=== PATIENT | female | born 2000 | race American Indian/Alaskan Native ===

== ENCOUNTER 2022-01-05 15:02 | Observation (INO) ==
[2022-01-05] MEDS ORDERED: LACTATED RINGERS 1,000 ML IV ONE (15:37)
[2022-01-05 15:41] LABS: Bacteria,Urine Occasional /HPF (Few); Mucus,Urine Many /LPF (Occasional); RBC,Urine 4 /HPF (0-4); Squamous Epithelial Cell,Urine Occasional /HPF (0-10)
[2022-01-05 15:42] LABS: Bilirubin,Urine Negative (Negative); Blood, Urine Negative (Negative); Glucose,Urine (UA) Negative (Negative); Ketones,Urine Trace mg/dL (Negative); Nitrite,Urine Positive (Negative); Protein,Urine >=300 mg/dL (Negative); Urine Appearance Clear (Clear); Urine Color Yellow (Yellow); Urine Specific Gravity >= 1.030 (1.001-1.035)
[2022-01-05 15:47] LABS: Protein/Creatinine Ratio,Urine 2.2 RATIO
[2022-01-05 16:00] LABS: Basophils % 0.2 % (0.0-0.8); Eosinophils # 0.1 10*3/uL (0.0-0.87); Eosinophils % 0.6 % (0.00-10.9); Hematocrit 35.1 VOL% (35.7-47.0); Hemoglobin 12.1 GM/DL (12.0-16.0); Immature Granulocytes % 0.2 %; Immature Granulocytes Absolute 0.02 #; Lymphocytes # 2.4 10*3/uL (1.4-4.0); Lymphocytes % 28.6 % (21.3-54.2); Mean Corpuscular HGB Conc 34.5 GM/DL (32-36); Mean Corpuscular Volume 83.2 FL (87-102); Mean Platelet Volume 9.5 FL (9.6-12.0); Monocytes # 0.5 10*3/uL (0.11-0.8); Monocytes % 5.7 % (1.7-12.7); Neutrophils % 64.7 % (38.7-73.9); Platelet Count 286 T/CUMM (130-400); Red Blood Count 4.22 MC/CUMM (3.8-5.5); Red Cell Distribution Width 11.7 % (9.3-17.3); White Blood Count 8.4 T/CUMM (4-12)
[2022-01-05] MEDS ORDERED: DEXTROSE 50% 25 GM/50 ML VIAL IV PRN (16:08)
[2022-01-05] MEDS ORDERED: GLUCAGON 1 MG VIAL IM PRN (16:08)
[2022-01-05 16:16] LABS: INR 0.9; PT Patient Result 10.2 SECS (10.1-12.1); Partial Thromboplastin Time 27.8 SECS (23.7-32.9)
[2022-01-05] MEDS: BETAMETH SODIUM PHOS/ACETATE 30 MG/5 ML VIAL IM SCH (16:20)
[2022-01-05 16:24] LABS: Alanine Aminotransferase 16 U/L (13-56); Albumin 1.7 G/DL (3.4-5.0); Alkaline Phosphatase 88 U/L (45-117); Aspartate Amino Transferase 18 U/L (0-37); Bilirubin,Direct < 0.100 MG/DL (0.0-0.20); Blood Urea Nitrogen 8 MG/DL (7-18); Calcium 8.2 MG/DL (8.5-10.1); Carbon Dioxide 20 MMOL/L (21-32); Chloride 110 MMOL/L (98-107); Glucose 85 MG/DL (74-106); Osmolality,Calculated 273.5 MOS/KG (273-304); Potassium 3.3 MMOL/L (3.5-5.1); Sodium 139 MMOL/L (136-145); Total Protein 6.1 G/DL (6.4-8.2); Uric Acid 4.3 MG/DL (2.6-6.0)
[2022-01-05] MEDS ORDERED: DEXTROSE 10% 250 ML BAG IV PRN (16:25)
[2022-01-05] MEDS ORDERED: LEVOFLOXACIN INJ 500 MG/100 ML PREMIX IV ONE (17:00)
[2022-01-05] MEDS: LACTATED RINGERS 1,000 ML IV SCH (17:02)
[2022-01-05] MEDS: INSULIN REGULAR 100 UNIT/ML SUBCUT SCH ×2 (17:27→21:24)
[2022-01-05] MEDS: POTASSIUM CHLORIDE 20 MEQ TABLET PO PRN ×3 (17:30→23:39)
[2022-01-05] MEDS: metFORMIN 500 MG TABLET PO SCH (17:31)
[2022-01-05 18:07] LABS: Barbiturates Screen,Urine Negative (Negative); Benzodiazepines Screen,Urine Negative (Negative); Cannabinoid Screen,Urine Negative (Negative); Opiate Screen,Urine Negative (Negative); Phencyclidine Screen,Urine Negative (Negative)
[2022-01-05] MEDS: INSULIN GLARGINE 100 UNIT/ML SUBCUT SCH (21:24)
[2022-01-06] MEDS ORDERED: OXYTOCIN/LR 30 UNIT/1,000 ML BAG IV ONE (00:14)
[2022-01-06] MEDS ORDERED: OXYTOCIN 10 UNIT/ML VIAL IM ONE (00:15)
[2022-01-06] MEDS: LACTATED RINGERS 1,000 ML IV SCH ×3 (01:22→18:29)
[2022-01-06] MEDS ORDERED: miSOPROStoL 200 MCG TABLET ONE (04:24)
[2022-01-06] MEDS: BETAMETH SODIUM PHOS/ACETATE 30 MG/5 ML VIAL IM SCH (04:27)
[2022-01-06] MEDS: INSULIN REGULAR 100 UNIT/ML SUBCUT SCH ×4 (07:48→22:59)
[2022-01-06] MEDS: metFORMIN 500 MG TABLET PO SCH ×2 (07:59→17:37)
[2022-01-06] MEDS: MULTIVITAMIN (PRENATAL) TABLET PO SCH (09:02)
[2022-01-06 15:32] LABS: Total Protein 24 Hr Ur Result 3915 MG/24HR (0-149.1); Total Volume,Urine 1500 ML (400-2000)
[2022-01-06 15:46] LABS: Creatinine Clearance Urine 260.21 ML/MIN (70-115)
[2022-01-06 20:35] VITALS: BP 137/81
[2022-01-06] MEDS: INSULIN GLARGINE 100 UNIT/ML SUBCUT SCH (22:59)
[2022-01-07] MEDS: INSULIN REGULAR 100 UNIT/ML SUBCUT SCH (07:40)
[2022-01-07] MEDS: metFORMIN 500 MG TABLET PO SCH (08:35)
[2022-01-07] MEDS: MULTIVITAMIN (PRENATAL) TABLET PO SCH (09:07)
== END 2022-01-07 10:42 | disposition home or self-care (01) ==
LOC: N.LDOUT 15:02 → N.LD 15:02
PROVIDERS: ADMIT Obstetrics & Gynecology; ATTEND Obstetrics & Gynecology

== ENCOUNTER 2022-01-12 13:10 | Inpatient (IN) ==
[2022-01-12 14:04] LABS: Basophils % 0.1 % (0.0-0.8); Eosinophils % 0.1 % (0.00-10.9); Hematocrit 34.8 VOL% (35.7-47.0); Hemoglobin 12.1 GM/DL (12.0-16.0); Immature Granulocytes % 0.4 %; Immature Granulocytes Absolute 0.03 #; Lymphocytes # 2.6 10*3/uL (1.4-4.0); Lymphocytes % 32.5 % (21.3-54.2); Mean Corpuscular HGB Conc 34.8 GM/DL (32-36); Mean Corpuscular Volume 82.3 FL (87-102); Mean Platelet Volume 9.8 FL (9.6-12.0); Monocytes # 0.4 10*3/uL (0.11-0.8); Monocytes % 4.9 % (1.7-12.7); Platelet Count 292 T/CUMM (130-400); Red Blood Count 4.23 MC/CUMM (3.8-5.5); Red Cell Distribution Width 11.6 % (9.3-17.3)
[2022-01-12 14:18] LABS: INR 0.9; PT Patient Result 9.9 SECS (10.1-12.1); Partial Thromboplastin Time 26.5 SECS (23.7-32.9)
[2022-01-12 14:20] LABS: Bacteria,Urine Moderate /HPF (Few); Mucus,Urine Many /LPF (Occasional); RBC,Urine 8 /HPF (0-4); Squamous Epithelial Cell,Urine Few /HPF (0-10); Urine Appearance Clear (Clear); Urine Color Yellow (Yellow); Urine Specific Gravity 1.033 (1.001-1.035)
[2022-01-12 14:21] LABS: Bilirubin,Urine Small mg/dL (Negative); Blood, Urine Trace mg/dL (Negative); Glucose,Urine (UA) 100 mg/dL (Negative); Ketones,Urine Trace mg/dL (Negative); Nitrite,Urine Negative (Negative); Protein,Urine >=300 mg/dL (Negative)
[2022-01-12 14:26] LABS: Alanine Aminotransferase 18 U/L (13-56); Albumin 1.7 G/DL (3.4-5.0); Alkaline Phosphatase 82 U/L (45-117); Aspartate Amino Transferase 15 U/L (0-37); Bilirubin,Total < 0.39 MG/DL (0.20-1.00); Blood Urea Nitrogen 11 MG/DL (7-18); Carbon Dioxide 21 MMOL/L (21-32); Chloride 109 MMOL/L (98-107); Glucose 124 MG/DL (74-106); Osmolality,Calculated 278.4 MOS/KG (273-304); Potassium 3.5 MMOL/L (3.5-5.1); Sodium 140 MMOL/L (136-145); Total Protein 5.8 G/DL (6.4-8.2); Uric Acid 5.1 MG/DL (2.6-6.0)
[2022-01-12 16:35] LABS: Protein/Creatinine Ratio,Urine 3.9 RATIO
[2022-01-12] MEDS ORDERED: LACTATED RINGERS 1,000 ML IV SCH (17:30)
[2022-01-12] MEDS ORDERED: GLUCAGON 1 MG VIAL IM PRN (17:53)
[2022-01-12] MEDS ORDERED: DEXTROSE 10% 250 ML BAG IV PRN (17:53)
[2022-01-12] MEDS: metFORMIN 500 MG TABLET PO SCH (20:39)
[2022-01-12] MEDS ORDERED: INSULIN GLARGINE 100 UNIT/ML SUBCUT SCH (21:00)
[2022-01-12] MEDS: INSULIN REGULAR 100 UNIT/ML SUBCUT SCH (21:55)
[2022-01-13] MEDS ORDERED: miSOPROStoL 200 MCG TABLET ONE (07:12)
[2022-01-13] MEDS ORDERED: TRANEXAMIC ACID 1,000 MG/10 ML VIAL ONE (07:12)
[2022-01-13] MEDS ORDERED: CARBOPROST TROMETHAMINE 250 MCG/ML AMP IM ONE (07:13)
[2022-01-13] MEDS ORDERED: OXYTOCIN/LR 30 UNIT/1,000 ML BAG IV ONE (07:20)
[2022-01-13] MEDS ORDERED: OXYTOCIN 10 UNIT/ML VIAL IM ONE (07:20)
[2022-01-13] MEDS ORDERED: ceFAZolin 3,000 MG in SYRINGE 15 EACH IV ONE ×2 (08:00→09:00)
[2022-01-13] MEDS ORDERED: FAMOTIDINE 20 MG/2 ML VIAL IV ONE ×2 (08:00→09:00)
[2022-01-13] MEDS ORDERED: CITRIC ACID/SODIUM CITRATE 30 ML UDCUP PO ONE ×2 (08:00→09:00)
[2022-01-13] MEDS ORDERED: buprenorphine HCL 0.3 MG/ML VIAL ONE (08:22)
[2022-01-13] MEDS ORDERED: BUPIVACAINE SPINAL 0.75% 2 ML AMP SPINAL ONE (08:22)
[2022-01-13] MEDS ORDERED: ACETAMINOPHEN 500 MG TABLET PO SCH (08:30)
[2022-01-13] MEDS ORDERED: KETOROLAC 30 MG/1 ML VIAL IV SCH (08:30)
[2022-01-13] MEDS ORDERED: ONDANSETRON 4 MG/2 ML VIAL ONE ×2 (08:33→09:08)
[2022-01-13] MEDS ORDERED: PHENYLEPHRINE 1 MG/10 ML SYRINGE IV ONE (08:43)
[2022-01-13] MEDS ORDERED: FUROSEMIDE 20 MG/2 ML VIAL ONE (08:58)
[2022-01-13] MEDS ORDERED: OXYTOCIN/LR 20 UNIT/1,000 ML BAG IV ONE ×2 (09:00→09:53)
[2022-01-13] MEDS ORDERED: miSOPROStoL 200 MCG TABLET RECTAL PRN (09:00)
[2022-01-13] MEDS ORDERED: TRANEXAMIC ACID 1,000 MG in SODIUM CHLORIDE 0.9% 100 ML IV PRN (09:00)
[2022-01-13] MEDS ORDERED: CARBOPROST TROMETHAMINE 250 MCG/ML AMP IM PRN (09:00)
[2022-01-13] MEDS ORDERED: METHYLERGONOVINE 0.2 MG/1 ML AMP IM PRN (09:00)
[2022-01-13 09:17] LABS: Cord Arterial Blood HCO3 21.9 MMOL/L
[2022-01-13 09:21] LABS: Cord Venous Blood PCO2 46.6 MMHG; Cord Venous Blood PO2 36.3
[2022-01-13 09:23] LABS: Mucus,Urine Occasional /LPF (Occasional); RBC,Urine 1 /HPF (0-4); Squamous Epithelial Cell,Urine Few /HPF (0-10)
[2022-01-13 09:24] LABS: Protein,Urine >=300 mg/dL (Negative); Urine Appearance Clear (Clear); Urine Color Yellow (Yellow); Urine Specific Gravity 1.025 (1.001-1.035)
[2022-01-13 09:25] LABS: Bilirubin,Urine Negative (Negative); Blood, Urine Trace mg/dL (Negative); Glucose,Urine (UA) Negative (Negative); Ketones,Urine Negative (Negative); Nitrite,Urine Negative (Negative); Urine Urobilinogen 0.2 eU/dL (<2.0)
[2022-01-13] MEDS ORDERED: GLUCAGON 1 MG VIAL IM PRN (09:53)
[2022-01-13] MEDS ORDERED: MAGNESIUM HYDROXIDE SUSP 30 ML UDCUP PO PRN (09:53)
[2022-01-13] MEDS ORDERED: ACETAMINOPHEN 325 MG TABLET PO PRN (09:53)
[2022-01-13] MEDS ORDERED: RHO(D) IMMUNE GLOBULIN 300 MCG SYRINGE IM ONE (09:53)
[2022-01-13] MEDS ORDERED: ONDANSETRON 4 MG/2 ML VIAL IV PRN (09:53)
[2022-01-13] MEDS ORDERED: IBUPROFEN 800 MG TABLET PO PRN (09:53)
[2022-01-13] MEDS ORDERED: SIMETHICONE CHEW 80 MG TABLET PO PRN (09:53)
[2022-01-13] MEDS ORDERED: DEXTROSE 50% 25 GM/50 ML VIAL IV PRN (09:53)
[2022-01-13] MEDS ORDERED: LACTATED RINGERS 1,000 ML IV SCH (10:00)
[2022-01-13] MEDS ORDERED: NIFEdipine 10 MG CAPSULE PO ONE ×2 (10:56→14:57)
[2022-01-13] MEDS: INSULIN REGULAR 100 UNIT/ML SUBCUT SCH ×3 (12:22→16:41)
[2022-01-13] MEDS: metFORMIN 500 MG TABLET PO SCH ×2 (12:23→16:39)
[2022-01-13] MEDS: KETOROLAC 30 MG/1 ML VIAL IV SCH ×2 (12:24→17:54)
[2022-01-13] MEDS: ACETAMINOPHEN 500 MG TABLET PO SCH ×2 (12:26→17:52)
[2022-01-13] MEDS ORDERED: HYDROmorphone 1 MG/1 ML SYRINGE IV PRN (14:58)
[2022-01-13] MEDS: FUROSEMIDE 40 MG/4 ML VIAL IV SCH ×2 (16:31→21:29)
[2022-01-13 18:52] LABS: Basophils % 0.2 % (0.0-0.8); Hematocrit 32.8 VOL% (35.7-47.0); Hemoglobin 11.7 GM/DL (12.0-16.0); Immature Granulocytes % 0.3 %; Immature Granulocytes Absolute 0.03 #; Lymphocytes # 2.8 10*3/uL (1.4-4.0); Lymphocytes % 32.4 % (21.3-54.2); Mean Corpuscular HGB Conc 35.7 GM/DL (32-36); Mean Corpuscular Volume 81.6 FL (87-102); Mean Platelet Volume 9.7 FL (9.6-12.0); Monocytes # 0.4 10*3/uL (0.11-0.8); Monocytes % 4.9 % (1.7-12.7); Neutrophils % 62.2 % (38.7-73.9); Platelet Count 265 T/CUMM (130-400); Red Blood Count 4.02 MC/CUMM (3.8-5.5); Red Cell Distribution Width 11.3 % (9.3-17.3); White Blood Count 8.8 T/CUMM (4-12)
[2022-01-13] MEDS: DOCUSATE SODIUM 100 MG CAPSULE PO SCH (21:29)
[2022-01-14] MEDS: ACETAMINOPHEN 500 MG TABLET PO SCH ×2 (00:37→06:19)
[2022-01-14] MEDS: KETOROLAC 30 MG/1 ML VIAL IV SCH ×2 (00:37→06:20)
[2022-01-14] MEDS: FUROSEMIDE 40 MG/4 ML VIAL IV SCH (04:05)
[2022-01-14 05:43] LABS: Basophils % 0.3 % (0.0-0.8); Eosinophils % 0.3 % (0.00-10.9); Hematocrit 37.3 VOL% (35.7-47.0); Hemoglobin 12.7 GM/DL (12.0-16.0); Immature Granulocytes % 0.1 %; Immature Granulocytes Absolute 0.01 #; Lymphocytes # 3.2 10*3/uL (1.4-4.0); Lymphocytes % 41.8 % (21.3-54.2); Mean Platelet Volume 9.4 FL (9.6-12.0); Monocytes # 0.5 10*3/uL (0.11-0.8); Neutrophils % 51.5 % (38.7-73.9); Platelet Count 240 T/CUMM (130-400); Red Blood Count 4.44 MC/CUMM (3.8-5.5); Red Cell Distribution Width 11.4 % (9.3-17.3); White Blood Count 7.6 T/CUMM (4-12)
[2022-01-14] MEDS: DOCUSATE SODIUM 100 MG CAPSULE PO SCH ×2 (08:23→23:28)
[2022-01-14] MEDS: metFORMIN 500 MG TABLET PO SCH ×2 (08:24→16:40)
[2022-01-14] MEDS: MULTIVITAMIN (PRENATAL) TABLET PO SCH (08:24)
[2022-01-14] MEDS: INSULIN REGULAR 100 UNIT/ML SUBCUT SCH ×4 (08:31→21:58)
[2022-01-14] MEDS: METOCLOPRAMIDE 10 MG TABLET PO SCH (16:40)
[2022-01-14] MEDS ORDERED: INSULIN GLARGINE 100 UNIT/ML SUBCUT SCH (21:00)
[2022-01-15] MEDS: METOCLOPRAMIDE 10 MG TABLET PO SCH ×2 (01:18→09:20)
[2022-01-15] MEDS: INSULIN REGULAR 100 UNIT/ML SUBCUT SCH ×2 (08:23→13:14)
[2022-01-15 08:48] VITALS: BP 147/97
[2022-01-15] MEDS: MULTIVITAMIN (PRENATAL) TABLET PO SCH (09:20)
[2022-01-15] MEDS: metFORMIN 500 MG TABLET PO SCH (09:20)
[2022-01-15] MEDS: DOCUSATE SODIUM 100 MG CAPSULE PO SCH (09:20)
[2022-01-16] MEDS ORDERED: INFLUENZA VIRUS VACCINE 0.5 ML SYRINGE IM ONE (09:00)
== END 2022-01-15 13:00 | disposition home or self-care (01) | DRG 540 ==
LOC: N.LDOUT 13:10 → N.LD 13:11 → N.OB 01-14 09:25
PROVIDERS: ADMIT Obstetrics & Gynecology; ATTEND Obstetrics & Gynecology
PROC: LDCSECT (ICD-10-PCS; 2022-01-13 08:30)